=== PATIENT | male | born 1955 | race Hispanic/Latino ===

== ENCOUNTER 2018-06-14 21:55 | Inpatient (IN) | payer OTHER ==
[2018-06-14] MEDS ORDERED: Fluorescein Opthalmic Strip ONE (22:53)
[2018-06-15] MEDS ORDERED: Ondansetron ODT 4 MG TAB SL PRN (02:43)
[2018-06-15] MEDS ORDERED: Ondansetron PF 4 MG/2 ML Vial IVP PRN ×3 (02:43→04:25)
[2018-06-15] MEDS ORDERED: Morphine 4 MG/ML VIAL IV PRN (02:43)
[2018-06-15 03:02] VITALS: BMI 35.4
[2018-06-15] MEDS ORDERED: Acetaminophen 325 MG TAB PO PRN ×2 (04:25→21:02)
[2018-06-15] MEDS ORDERED: Ondansetron ODT 4 MG TAB PO PRN ×2 (04:25)
[2018-06-15] MEDS ORDERED: HumaLOG 300 UNITS/3 ML VIAL SC PRN (04:25)
[2018-06-15] MEDS ORDERED: Dextrose 50% Abboject 50 ML SYRINGE SLOW IVP PRN (04:25)
[2018-06-15] MEDS ORDERED: Dextrose 5% in Water 1,000 ML IV PRN (04:25)
[2018-06-15] MEDS ORDERED: hydrALAZINE 20 MG/ML VIAL SLOW IVP PRN (04:25)
--- NOTE | 2018-06-15 04:55 | HP ---
CHIEF COMPLAINT: Swelling in the left side of the face. HISTORY OF PRESENT ILLNESS: Mr. Gonzalez is a pleasant 62-year-old gentleman, who has a history of diabetes mellitus type 2 as well as cirrhosis. He was in his usual state of health until a couple of days ago when he says he noticed a small pimple like area on the side of his nose. He says then the swelling got progressively worse to the point where it encompassed his whole left side of his face and his eyes were swollen and shut. He tried using some creams and lotions that his family brought in without any relief. When asked if he had any significant pain, he said he had a little bit of soreness on Thursday and Thursday, but then it got better. There has been no change in his vision. No fevers or chills. However, due to the extensive nature of the swelling and redness, he was taken to the hospital at [facility] where he was evaluated, started on IV antibiotics, and then transferred to our facility for further treatment. REVIEW OF SYSTEMS: All systems were reviewed and are negative except for that mentioned in the history of present illness. PAST MEDICAL HISTORY: Significant for diabetes mellitus type 2, cirrhosis, hypertension, gastroesophageal reflux disease, pancytopenia, and hypothyroidism. PAST SURGICAL HISTORY: He has had disk surgery. ALLERGIES: NO KNOWN DRUG ALLERGIES. SOCIAL HISTORY: He is only recently . He denies any smoking. No alcohol use. He has 4 children. FAMILY HISTORY: No history of any heritable diseases. MEDICATIONS: Medications are taken from the records sent with him from the [facility], from the [facility] include, 1. Aldactone 25 mg twice daily. 2. Xifaxan 3 tablets twice a day. 3. Propranolol 20 mg twice daily. 4. Omeprazole 20 mg daily. 5. Insulin sliding scale. 6. Levothyroxine 0.1 mg daily. 7. Furosemide 20 mg daily. 8. Iron sulfate 325 mg twice daily. 9. Debrox Otic twice a day. 10. Tylenol 325 p.r.n. PHYSICAL EXAMINATION: GENERAL: He is alert and oriented. He appears to be in no acute distress. He is well developed and well nourished. VITAL SIGNS: Blood pressure was 107/69, heart rate 84, respiratory rate of 16, temperature is 97.6, and O2 saturation is 96% on room air. HEENT: His pupils are equal and reactive. Throat, he has slightly poor dentition, but there is no significant erythema. NECK: He has some swelling on the left side in the submandibular region, but no adenopathy. LUNGS: Clear to auscultation bilaterally. No wheezing or rales. CARDIOVASCULAR: He has normal S1 and S2. I did not appreciate an S3 or S4. No murmurs, clicks, or rubs. ABDOMEN: Obese. It is soft. It is nontender and nondistended. Positive for bowel sounds. No rebound or guarding. No organomegaly. EXTREMITIES: On his lower extremities, there is no edema. He does have some chronic venous stasis changes. No calf pain. NEUROLOGIC: His cranial nerves II through XII are intact. SKIN AND INTEGUMENT: On the left side of his face, it is significantly swollen. His left eye is essentially swollen and shut. He has some horta crusting along with some dark red, almost black crusting areas on the face around the nose and nasal labia. There is no discrete vesicles seen and there is significant swelling on the left side of the face as well as some underlying erythema. LABORATORY DATA: Lab results are taken from the [facility], and the white blood cell count was 4.4, hemoglobin 12.5, hematocrit is 35.2, and platelet count was 49. Sodium is 127, potassium 3.9, chloride is 93, CO2 is 24, BUN 27, creatinine 1.4. Lactic acid initially was 2.1. He had a CT scan of the face, which was negative for any deep abscess nor did mention any periorbital or orbital cellulitis, but did show some superficial facial swelling. ASSESSMENT: This is a pleasant 62-year-old gentleman, who presents with left facial swelling, likely this represents cellulitis. He says that the area started he believes around the nasal fold, and the CT scan did show some mandibular swelling. Therefore, the source could either be superficial near the nose or possibly due to bad dentition or poor dentition. There were no vesicular lesions even though the area is unilateral. Therefore, I doubt this is a herpes zoster infection. It is reported that he has already been evaluated by Ophthalmology in the ER and ocular involvement has been ruled out. Therefore, 1. Facial cellulitis. We will cover for the usual pathogen such as staph and strep and then given the proximity to the mandible, agree with continuing clindamycin for possible oral pathogens. We will need to follow his progress clinically and adjust antibiotics as needed. 2. Cirrhosis. This appears to be clinically compensated at this time. We will continue his usual medications for this. 3. Hypertension. Again reconcile and restart his home medications plus p.r.n. medications as needed. 4. For diabetes mellitus, again reconcile and restart home medications as well as a sliding scale. Job ID: [id number]
[2018-06-15] MEDS: Levothyroxine Sodium 100 MCG TAB PO SCH (05:12)
[2018-06-15] MEDS: Clindamycin/D5W 600 MG in Premix Bag 1 BAG IVPB SCH ×2 (05:12→13:57)
[2018-06-15 08:34] LABS: INR-International Normal Ratio 1.5; Prothrombin Time 18.3 SEC (12.0-14.7)
[2018-06-15 08:39] LABS: #Lymphocytes 0.6 thou/uL (1.20-3.40); #Monocytes 0.1 thou/uL (0.11-0.59); #Neutrophils 2.1 thou/uL (1.40-6.50); %Basophils 0.1 % (0.0-1.0); %Eosinophils 0.1 % (0.0-10.0); %Lymphocytes 19.3 % (21.0-51.0); %Monocytes 4.7 % (0.0-10.0); %Neutrophils 75.8 % (42.0-75.0); Hemoglobin 10.1 g/dL (14.0-18.0); Mean Corpuscular HGB CONC 34.3 g/dL (32.0-36.0); Mean Corpuscular Hemoglobin 33.3 pg (27.0-31.0); Mean Corpuscular Volume 97.2 fL (78.0-98.0); Mean Platelet Volume 8.3 fL (7.4-10.4); Platelet Count 42 thou/uL (130-400); RBC Distribution Width 13.6 % (11.5-14.5); Red Blood Cell (RBC) Count 3.03 mill/uL (4.70-6.10); White Blood Cell (WBC) Count 2.8 thou/uL (4.8-10.8)
[2018-06-15 08:42] LABS: Anion Gap 11 mmol/L (10-20); BUN (Urea Nitrogen) 29 mg/dL (8.4-25.7); Calc. Creatinine Clearance 85 mL/min (70-130); Calcium 7.7 mg/dL (7.8-10.44); Carbon Dioxide 20 mmol/L (22-29); Chloride 102 mmol/L (98-107); Estimated GFR-MDRD 63; Glucose 305 mg/dL (70-105); Potassium 3.7 mmol/L (3.5-5.1); Sodium 129 mmol/L (136-145)
[2018-06-15] MEDS ORDERED: RIFAXIMIN 200 MG PO SCH (09:00)
[2018-06-15] MEDS ORDERED: Vancomycin HCl 1 GM in Premix Bag 1 BAG IVPB SCH (09:00)
[2018-06-15] MEDS: Ferrous Sulfate 325 MG TAB PO SCH ×2 (09:13→16:38)
[2018-06-15] MEDS: Spironolactone 25 MG TAB PO SCH ×2 (09:13→20:44)
[2018-06-15] MEDS: Furosemide 20 MG TAB PO SCH (09:13)
[2018-06-15] MEDS: Propranolol HCl 20 MG TAB PO SCH ×2 (09:13→20:46)
[2018-06-15] MEDS ORDERED: NPH, Human Insulin Isophane 300 UNIT/3 ML VIAL SC SCH ×2 (12:30→21:00)
[2018-06-15] MEDS: HumaLOG 300 UNITS/3 ML VIAL SC PRN ×3 (12:46→20:47)
[2018-06-15] MEDS ORDERED: cefTRIAXone\\ROCEPHIN 1 GM in Sodium Chloride 0.9% 100 ML IVPB SCH (13:00)
[2018-06-15 16:44] LABS: Reference Lab Name LABCORP
[2018-06-15 16:45] LABS: Ref Lab Test Ordered VZV DNA PCR
[2018-06-15] MEDS: Artificial Tear Sol 15 ML BOT L EYE SCH ×2 (16:45→20:48)
--- NOTE | 2018-06-15 19:17 | CON ---
DATE OF CONSULTATION: 06/15/2018 REASON FOR CONSULTATION: Left facial inflammatory changes. HISTORY OF PRESENT ILLNESS: A 62-year-old patient, who has history of type 2 diabetes, cirrhosis probably steatohepatitis with pancytopenia, and GERD, who is a resident at [facility] and developed a left side skin eruption over the past few days, which started as a small pimple to the left side of his nose. He has been started on broad-spectrum antimicrobial coverage. Apparently, he was given some antimicrobials and antivirals in the [facility] clinic. The vision is intact. He has periorbital pain from swelling. Denies any sore throat, odynophagia, dysphagia, or maybe a little bit of sore throat. No neck pain. No back pain. No cough or sputum production. No abdominal pain or diarrhea. No genitourinary symptoms. No neurological symptoms. PAST MEDICAL HISTORY: Type 2 diabetes, cirrhosis probably steatohepatitis, hypertension, GERD, pancytopenia, and hypothyroidism. PAST SURGICAL HISTORY: Disk surgery in the back. ALLERGIES: NONE. SOCIAL HISTORY: He is currently at [facility]. Never smoker. No alcoholic beverage use. Four kids. FAMILY HISTORY: Noncontributory. CURRENT MEDICATIONS: 1. Acyclovir. 2. Ferrous sulfate. 3. Furosemide. 4. Hydralazine. 5. Lactulose. 6. Ondansetron. PHYSICAL EXAMINATION: VITAL SIGNS: Blood pressure is normal. Temperature normal. SKIN: Shows the pustular eruption on the left side of the face in the distribution of the second trigeminal nerve. He does have pustules in the hard palate on the left side as well. HEENT: The earlobe and external ear are not involved. The sclerae appears to be intact and the cornea does not appear to be involved. NECK: Supple. No jugular vein distention. LUNGS: Symmetric clear breath sounds. HEART: S1 and S2. Regular rate. No S3 or S4. ABDOMEN: Soft, not distended or tender. No ascites. No bladder distention. NEUROLOGIC: No neurological abnormalities. LABORATORY DATA: White cell count 2.8, hemoglobin 10.1, and platelets 42,000 with 75% neutrophils. INR 1.5. Sodium 129, creatinine 1.18, glucose 305, and calcium 7.7. Chest x-ray was not done, actually, this is from September and did not show any significant findings. ASSESSMENT AND PLAN: Type 2 diabetes with herpes zoster in the second trigeminal nerve distribution. No evidence of corneal involvement at this time. We will switch him to acyclovir IV and monitor clinical progress. Continue monitoring corneal structure. Job ID: [id number]
[2018-06-15] MEDS: Rifaximin 550 MG TAB PO SCH (20:44)
[2018-06-15] MEDS: NPH, Human Insulin Isophane 300 UNIT/3 ML VIAL SC SCH (20:46)
[2018-06-15] MEDS: Acyclovir Sodium 570 MG in Sodium Chloride 0.9% 100 ML IVPB SCH (20:48)
[2018-06-15] MEDS ORDERED: traMADol HCl 50 MG TAB PO PRN (21:02)
--- NOTE | 2018-06-15 21:20 | PDOC.PN ---
- Subjective Encounter Start Date: 06/15/18 Encounter Start Time: 10:45 Patient seen and examined for left facial cellulitis. No fever/chills. No vision problems. No new complaints. No overnight events - Objective Resuscitation Status - Order Detail: 06/15/18 04:17 Resuscitation Status Routine Resuscitation Status: FULL: Full Resuscitation MAR Reviewed: Yes Vital Signs & Weight: Vital Signs (12 hours) Temp Pulse Resp BP Pulse Ox 06/15/18 19:54 97.8 F 87 16 98/55 L 93 L 06/15/18 16:45 97.8 F 90 18 119/61 98 06/15/18 11:00 97.9 F 77 18 99/60 96 Weight Admit Weight 200 lb 1.6 oz Weight 200 lb 1.6 oz I&O: 06/14/18 06/15/18 06/16/18 06:59 06:59 06:59 Intake Total 720 Balance 720 Result Diagrams: 06/15/18 07:47 06/15/18 07:47 Additional Labs: Accuchecks 06/15/18 06/15/18 06/15/18 19:59 16:43 11:37 POC Glucose 430 H 427 H 429 H 06/15/18 06/15/18 05:13 03:16 POC Glucose 329 H 308 H Phys Exam - Physical Examination Constitutional: NAD Respiratory: no wheezing, no rhonchi Cardiovascular: RRR, no rub Gastrointestinal: soft, non-tender, positive bowel sounds Musculoskeletal: no edema Dx/Plan - Plan DVT proph w/SCDs 1. Left facial cellulitis/Herpes Zoster 2. Cirrhosis 3. Obesity BMI 35 4. DM2 5. HTN 6. Hypothyroidism 7. Pancytopenia/Other issues per previous notes PLAN: Cont IV Atbx Consult ID Resume selected home meds including Rifaximin AM labs Add NPH Change sliding scale to aggressive Ophthal consult Review of Systems - Review of Systems Respiratory: negative: Cough, Dry, Shortness of Breath, Hemoptysis, SOB with Excertion, Pleuritic Pain, Sputum, Wheezing Cardiovascular: negative: chest pain, palpitations, orthopnea, paroxysmal nocturnal dyspnea, edema, light headedness, other Gastrointestinal: negative: Nausea, Vomiting, Abdominal Pain, Diarrhea, Constipation, Melena, Hematochezia, Other - Medications/Allergies Allergies/Adverse Reactions: Allergies Allergy/AdvReac Type Severity Reaction Status Date / Time No Known Allergies Allergy Verified 08/27/16 10:10 Medications: Current Medications Acetaminophen (Tylenol) 325 mg PO Q6H PRN PRN Reason: Headache/Fever/MILDPain1-3 Artificial Tears (Tears Renewed 15ml Bottle) 0 drop L EYE TID [facility] Last Admin: 06/15/18 20:48 Dose: 2 drop Dextrose/Water (Dextrose 50%) 25 gm SLOW IVP PRN PRN PRN Reason: Hypoglycemia Ferrous Sulfate (Feosol) 325 mg PO BID-[facility] Last Admin: 06/15/18 16:38 Dose: 325 mg Furosemide (Lasix) 20 mg PO DAILY [facility] Last Admin: 06/15/18 09:13 Dose: 20 mg Glucagon (Glucagon) 1 mg IM PRN PRN PRN Reason: Hypoglycemia Hydralazine HCl (Apresoline) 10 mg SLOW IVP Q4H PRN PRN Reason: SBP > 180 and HR < 70 Dextrose/Water (D5w) 1,000 mls @ 0 mls/hr IV .Q0M PRN PRN Reason: Hypoglycemia Acyclovir Sodium 570 mg/ (Sodium Chloride) 111.4 mls @ 111.4 mls/hr IVPB Q8HR [facility] Last Admin: 06/15/18 20:48 Dose: 111.4 mls Insulin Human Lispro (Humalog) 0 units SC .BEDTIME SLIDING SC PRN PRN Reason: Bedtime Correctional Scale Last Admin: 06/15/18 20:47 Dose: 5 unit/kg Insulin Human Lispro (Humalog) 0 units SC .AGGRESSIVE SLIDING PRN PRN Reason: Aggressive Correctional Scale Last Admin: 06/15/18 16:42 Dose: 13 unit Insulin Human NPH (Humulin N) 20 unit SC BID [facility] Last Admin: 06/15/18 20:46 Dose: 20 unit Lactulose (Lactulose) 10 gm PO BID [facility] Last Admin: 06/15/18 20:44 Dose: 10 gm Levothyroxine Sodium (Synthroid) 100 mcg PO 0600 [facility] Last Admin: 06/15/18 05:12 Dose: 100 mcg Ondansetron HCl (Zofran Odt) 4 mg PO Q6H PRN PRN Reason: Nausea/Vomiting Ondansetron HCl (Zofran) 4 mg IVP Q6H PRN PRN Reason: Nausea/Vomiting Propranolol HCl (Inderal) 20 mg PO BID [facility] Last Admin: 06/15/18 20:46 Dose: 20 mg Rifaximin (Xifaxan) 550 mg PO BID [facility] Last Admin: 06/15/18 20:44 Dose: 550 mg Saccharomyces Boulardii (Florastor) 250 mg PO DAILY [facility] Sodium Chloride (Flush - Normal Saline) 10 ml IVF Q12HR [facility] Last Admin: 06/15/18 20:46 Dose: 10 ml Sodium Chloride (Flush - Normal Saline) 10 ml IVF PRN PRN PRN Reason: Saline Flush Spironolactone (Aldactone) 25 mg PO BID [facility] Last Admin: 06/15/18 20:44 Dose: 25 mg Tramadol HCl (Ultram) 50 mg PO Q8H PRN PRN Reason: Moderate Pain (4-6)
[2018-06-16] MEDS: HumaLOG 300 UNITS/3 ML VIAL SC PRN ×5 (03:50→22:05)
[2018-06-16 05:20] LABS: ALT (SGPT) 33 U/L (8-55); AST (SGOT) 36 U/L (5-34); Albumin 2.8 g/dL (3.5-5.0); Alkaline Phosphatase 77 U/L (40-150); Anion Gap 12 mmol/L (10-20); BUN (Urea Nitrogen) 35 mg/dL (8.4-25.7); Bilirubin, Total 1.6 mg/dL (0.2-1.2); Calc. Creatinine Clearance 81 mL/min (70-130); Calcium 8.4 mg/dL (7.8-10.44); Carbon Dioxide 22 mmol/L (22-29); Chloride 101 mmol/L (98-107); Estimated GFR-MDRD 59; Globulin 2.9 g/dL (2.4-3.5); Glucose 303 mg/dL (70-105); Magnesium 1.9 mg/dL (1.6-2.6); Potassium 4.1 mmol/L (3.5-5.1); Protein, Total 5.7 g/dL (6.0-8.3); Sodium 131 mmol/L (136-145)
[2018-06-16] MEDS: Levothyroxine Sodium 100 MCG TAB PO SCH (05:23)
[2018-06-16] MEDS: Acyclovir Sodium 570 MG in Sodium Chloride 0.9% 100 ML IVPB SCH ×3 (05:23→22:07)
[2018-06-16 05:25] LABS: #Monocytes 0.5 thou/uL (0.11-0.59); #Neutrophils 4.7 thou/uL (1.40-6.50); %Basophils 0.3 % (0.0-1.0); %Eosinophils 0.4 % (0.0-10.0); %Lymphocytes 15.9 % (21.0-51.0); %Monocytes 7.3 % (0.0-10.0); %Neutrophils 76.2 % (42.0-75.0); Hemoglobin 10.9 g/dL (14.0-18.0); Mean Corpuscular HGB CONC 34.5 g/dL (32.0-36.0); Mean Corpuscular Hemoglobin 33.6 pg (27.0-31.0); Mean Corpuscular Volume 97.2 fL (78.0-98.0); Mean Platelet Volume 8.7 fL (7.4-10.4); Platelet Count 52 thou/uL (130-400); RBC Distribution Width 13.7 % (11.5-14.5); Red Blood Cell (RBC) Count 3.25 mill/uL (4.70-6.10); White Blood Cell (WBC) Count 6.1 thou/uL (4.8-10.8)
[2018-06-16] MEDS ORDERED: Saccharomyces boulardii 250 MG CAP PO SCH (09:00)
[2018-06-16] MEDS: Propranolol HCl 20 MG TAB PO SCH ×2 (09:22→21:59)
[2018-06-16] MEDS: Spironolactone 25 MG TAB PO SCH ×2 (09:23→21:58)
[2018-06-16] MEDS: Rifaximin 550 MG TAB PO SCH ×2 (09:23→21:58)
[2018-06-16] MEDS: Ferrous Sulfate 325 MG TAB PO SCH ×2 (09:23→18:18)
[2018-06-16] MEDS: Furosemide 20 MG TAB PO SCH (09:23)
[2018-06-16] MEDS: Artificial Tear Sol 15 ML BOT L EYE SCH ×3 (09:24→22:00)
[2018-06-16] MEDS: NPH, Human Insulin Isophane 300 UNIT/3 ML VIAL SC SCH ×2 (09:24→22:00)
[2018-06-16] MEDS ORDERED: NPH, Human Insulin Isophane 300 UNIT/3 ML VIAL SC SCH ×2 (12:07→12:15)
[2018-06-16] MEDS ORDERED: Eucerin (Mineral Oil/Petrolatum,White) 30 gm Jar TOP PRN (12:43)
--- NOTE | 2018-06-16 17:13 | PRG ---
DATE OF SERVICE: 06/16/2018 SUBJECTIVE: Mr. Gonzalez is about the same. Denies any visual problems. He was seen by Dr. Ontiveros, Ophthalmology. No respiratory symptoms or abdominal pain. No diarrhea. OBJECTIVE: VITAL SIGNS: Normal. GENERAL: The left side of the face still with areas of herpes zoster. Some of them are dried up and necrotic. Some of them are still active. LUNGS: Clear. HEART: S1 and S2, regular rate. ABDOMEN: Soft, not distended or tender. EXTREMITIES: Moving all extremities equally. LABORATORY DATA: White cell count 6.1, hemoglobin 10.9, platelets 52,000, sodium 131, creatinine 1.24 with bilirubin 1.6, AST 36, albumin 2.8. ASSESSMENT AND DISCUSSION: Type 2 diabetes and herpes zoster in the second trigeminal distribution. No evidence of corneal involvement at this time. The patient to continue on IV acyclovir one that was drying up over the lesions and transition to oral acyclovir for discharge planning. Job ID: [id number]
--- NOTE | 2018-06-16 21:32 | PDOC.PN ---
- Subjective Encounter Start Date: 06/16/18 Encounter Start Time: 12:00 Patient seen and examined for Left facial lesions. No new complaints. No overnight events - Objective Resuscitation Status - Order Detail: 06/15/18 04:17 Resuscitation Status Routine Resuscitation Status: FULL: Full Resuscitation MAR Reviewed: Yes Vital Signs & Weight: Vital Signs (12 hours) Temp Pulse Resp BP Pulse Ox 06/16/18 12:00 97.9 F 76 18 104/64 97 Weight Admit Weight 200 lb 1.6 oz Weight 200 lb 1.6 oz I&O: 06/15/18 06/16/18 06/17/18 06:59 06:59 06:59 Intake Total 720 720 Balance 720 720 Result Diagrams: 06/16/18 04:17 06/16/18 04:17 Additional Labs: Accuchecks 06/16/18 06/16/18 06/16/18 19:29 16:55 11:39 POC Glucose 411 H 336 H 368 H 06/16/18 06/16/18 06/16/18 11:30 04:42 01:52 POC Glucose 403 H 229 H 319 H Phys Exam - Physical Examination Constitutional: NAD Respiratory: no wheezing, no rhonchi Cardiovascular: RRR, no rub Gastrointestinal: soft, non-tender, positive bowel sounds Musculoskeletal: no edema Neurological: moves all 4 limbs Dx/Plan - Plan DVT proph w/SCDs 1. Left facial Herpes Zoster 2. Cirrhosis 3. Obesity BMI 35 4. DM2 5. HTN 6. Hypothyroidism 7. Pancytopenia/Other issues per previous notes PLAN: Cont IV Acyclovir No corneal involvement per Ophthal Cont current meds as below Resume home PPI AM labs Increase NPH to 25 units BID Cont sliding scale Review of Systems - Review of Systems Respiratory: negative: Cough, Dry, Shortness of Breath, Hemoptysis, SOB with Excertion, Pleuritic Pain, Sputum, Wheezing Cardiovascular: negative: chest pain, palpitations, orthopnea, paroxysmal nocturnal dyspnea, edema, light headedness, other Gastrointestinal: negative: Nausea, Vomiting, Abdominal Pain, Diarrhea, Constipation, Melena, Hematochezia, Other - Medications/Allergies Allergies/Adverse Reactions: Allergies Allergy/AdvReac Type Severity Reaction Status Date / Time No Known Allergies Allergy Verified 08/27/16 10:10 Medications: Current Medications Acetaminophen (Tylenol) 325 mg PO Q6H PRN PRN Reason: Headache/Fever/MILDPain1-3 Artificial Tears (Tears Renewed 15ml Bottle) 0 drop L EYE TID [facility] Last Admin: 06/16/18 18:19 Dose: 1 drop Dextrose/Water (Dextrose 50%) 25 gm SLOW IVP PRN PRN PRN Reason: Hypoglycemia Ferrous Sulfate (Feosol) 325 mg PO BID-[facility] Last Admin: 06/16/18 18:18 Dose: 325 mg Furosemide (Lasix) 20 mg PO DAILY [facility] Last Admin: 06/16/18 09:23 Dose: 20 mg Glucagon (Glucagon) 1 mg IM PRN PRN PRN Reason: Hypoglycemia Hydralazine HCl (Apresoline) 10 mg SLOW IVP Q4H PRN PRN Reason: SBP > 180 and HR < 70 Dextrose/Water (D5w) 1,000 mls @ 0 mls/hr IV .Q0M PRN PRN Reason: Hypoglycemia Acyclovir Sodium 570 mg/ (Sodium Chloride) 111.4 mls @ 111.4 mls/hr IVPB Q8HR [facility] Last Admin: 06/16/18 15:30 Dose: 111.4 mls Insulin Human Lispro (Humalog) 0 units SC .BEDTIME SLIDING SC PRN PRN Reason: Bedtime Correctional Scale Last Admin: 06/16/18 03:50 Dose: 4 unit/kg Insulin Human Lispro (Humalog) 0 units SC .AGGRESSIVE SLIDING PRN PRN Reason: Aggressive Correctional Scale Last Admin: 06/16/18 18:18 Dose: 11 unit Insulin Human NPH (Humulin N) 25 unit SC BID [facility] Lactulose (Lactulose) 10 gm PO BID [facility] Last Admin: 06/16/18 09:23 Dose: 10 gm Levothyroxine Sodium (Synthroid) 100 mcg PO 0600 [facility] Last Admin: 06/16/18 05:23 Dose: 100 mcg Mineral Oil/White Petrolatum (Eucerin Cream) 0 gm TOP BIDPRN PRN PRN Reason: Dry Skin Non-Formulary Medication (Omeprazole [Omeprazole]) 20 mg PO DAILY [facility] Ondansetron HCl (Zofran Odt) 4 mg PO Q6H PRN PRN Reason: Nausea/Vomiting Ondansetron HCl (Zofran) 4 mg IVP Q6H PRN PRN Reason: Nausea/Vomiting Propranolol HCl (Inderal) 20 mg PO BID [facility] Last Admin: 06/16/18 09:22 Dose: 20 mg Rifaximin (Xifaxan) 550 mg PO BID [facility] Last Admin: 06/16/18 09:23 Dose: 550 mg Saccharomyces Boulardii (Florastor) 250 mg PO DAILY [facility] Last Admin: 06/16/18 09:22 Dose: 250 mg Sodium Chloride (Flush - Normal Saline) 10 ml IVF Q12HR [facility] Last Admin: 06/16/18 09:24 Dose: 10 ml Sodium Chloride (Flush - Normal Saline) 10 ml IVF PRN PRN PRN Reason: Saline Flush Spironolactone (Aldactone) 25 mg PO BID [facility] Last Admin: 06/16/18 09:23 Dose: 25 mg Tramadol HCl (Ultram) 50 mg PO Q8H PRN PRN Reason: Moderate Pain (4-6)
[2018-06-17] MEDS: Levothyroxine Sodium 100 MCG TAB PO SCH (05:56)
[2018-06-17] MEDS: Acyclovir Sodium 570 MG in Sodium Chloride 0.9% 100 ML IVPB SCH ×3 (05:57→21:23)
[2018-06-17] MEDS: HumaLOG 300 UNITS/3 ML VIAL SC PRN ×2 (05:59→18:57)
[2018-06-17 06:42] LABS: #Lymphocytes 0.9 thou/uL (1.20-3.40); #Monocytes 0.5 thou/uL (0.11-0.59); #Neutrophils 4.4 thou/uL (1.40-6.50); %Basophils 0.3 % (0.0-1.0); %Eosinophils 0.5 % (0.0-10.0); %Lymphocytes 15.3 % (21.0-51.0); %Monocytes 7.7 % (0.0-10.0); %Neutrophils 76.2 % (42.0-75.0); Hemoglobin 11.3 g/dL (14.0-18.0); Mean Corpuscular HGB CONC 34.9 g/dL (32.0-36.0); Mean Corpuscular Hemoglobin 33.4 pg (27.0-31.0); Mean Corpuscular Volume 95.7 fL (78.0-98.0); Platelet Count 63 thou/uL (130-400); RBC Distribution Width 13.6 % (11.5-14.5); Red Blood Cell (RBC) Count 3.39 mill/uL (4.70-6.10); White Blood Cell (WBC) Count 5.8 thou/uL (4.8-10.8)
[2018-06-17 06:57] LABS: ALT (SGPT) 33 U/L (8-55); AST (SGOT) 35 U/L (5-34); Albumin 2.8 g/dL (3.5-5.0); Alkaline Phosphatase 84 U/L (40-150); Anion Gap 10 mmol/L (10-20); BUN (Urea Nitrogen) 22 mg/dL (8.4-25.7); Bilirubin, Total 1.5 mg/dL (0.2-1.2); Calc. Creatinine Clearance 90 mL/min (70-130); Calcium 8.6 mg/dL (7.8-10.44); Carbon Dioxide 25 mmol/L (22-29); Chloride 103 mmol/L (98-107); Estimated GFR-MDRD 67; Globulin 3.1 g/dL (2.4-3.5); Glucose 200 mg/dL (70-105); Potassium 4.1 mmol/L (3.5-5.1); Protein, Total 5.9 g/dL (6.0-8.3); Sodium 134 mmol/L (136-145)
[2018-06-17] MEDS: Spironolactone 25 MG TAB PO SCH ×2 (09:25→21:21)
[2018-06-17] MEDS: Rifaximin 550 MG TAB PO SCH ×2 (09:25→21:21)
[2018-06-17] MEDS: Furosemide 20 MG TAB PO SCH (09:26)
[2018-06-17] MEDS: Propranolol HCl 20 MG TAB PO SCH ×2 (09:26→21:27)
[2018-06-17] MEDS: NPH, Human Insulin Isophane 300 UNIT/3 ML VIAL SC SCH ×2 (09:27→21:29)
[2018-06-17] MEDS: Artificial Tear Sol 15 ML BOT L EYE SCH ×3 (09:27→21:22)
[2018-06-17] MEDS: Ferrous Sulfate 325 MG TAB PO SCH ×2 (09:27→18:14)
--- NOTE | 2018-06-17 21:56 | PDOC.PN ---
- Subjective Encounter Start Date: 06/17/18 Encounter Start Time: 10:45 Patient seen and examined for Zoster. No fever/chills or visual deficits. No new complaints. No overnight events - Objective Resuscitation Status - Order Detail: 06/15/18 04:17 Resuscitation Status Routine Resuscitation Status: FULL: Full Resuscitation MAR Reviewed: Yes Vital Signs & Weight: Vital Signs (12 hours) Temp Pulse Resp BP Pulse Ox 06/17/18 19:47 98.0 F 69 18 107/67 97 06/17/18 16:00 97.6 F 68 18 109/62 98 Weight Admit Weight 200 lb 1.6 oz Weight 200 lb 1.6 oz I&O: 06/16/18 06/17/18 06/18/18 06:59 06:59 06:59 Intake Total 720 1400 600 Balance 720 1400 600 Result Diagrams: 06/17/18 06:18 06/17/18 06:18 Additional Labs: Accuchecks 06/17/18 06/17/18 06/17/18 19:46 17:10 11:42 POC Glucose 281 H 271 H 261 H 06/17/18 05:57 POC Glucose 195 H Phys Exam - Physical Examination Constitutional: NAD HEENT: moist MMs Left facial lesion - slightly better Respiratory: no wheezing, no rhonchi Cardiovascular: RRR, no rub Gastrointestinal: soft, non-tender, positive bowel sounds Musculoskeletal: no edema Neurological: moves all 4 limbs Dx/Plan - Plan DVT proph w/SCDs 1. 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 Cirrhosis 3. Obesity BMI 35 4. DM2 5. HTN 6. Hypothyroidism 7. Pancytopenia/Other issues per previous notes PLAN: Cont IV Acyclovir AM labs Increase NPH to 30 units BID Cont current sliding scale DC in 24-48 hr if stable Review of Systems - Review of Systems Respiratory: negative: Cough, Dry, Shortness of Breath, Hemoptysis, SOB with Excertion, Pleuritic Pain, Sputum, Wheezing Cardiovascular: negative: chest pain, palpitations, orthopnea, paroxysmal nocturnal dyspnea, edema, light headedness, other - Medications/Allergies Allergies/Adverse Reactions: Allergies Allergy/AdvReac Type Severity Reaction Status Date / Time No Known Allergies Allergy Verified 08/27/16 10:10 Medications: Current Medications Acetaminophen (Tylenol) 325 mg PO Q6H PRN PRN Reason: Headache/Fever/MILDPain1-3 Artificial Tears (Tears Renewed 15ml Bottle) 0 drop L EYE TID ON LICENSE OF [facility] Last Admin: 06/17/18 21:22 Dose: 1 drop Dextrose/Water (Dextrose 50%) 25 gm SLOW IVP PRN PRN PRN Reason: Hypoglycemia Ferrous Sulfate (Feosol) 325 mg PO BID-[facility] Last Admin: 06/17/18 18:14 Dose: 325 mg Furosemide (Lasix) 20 mg PO DAILY [facility] Last Admin: 06/17/18 09:26 Dose: 20 mg Glucagon (Glucagon) 1 mg IM PRN PRN PRN Reason: Hypoglycemia Hydralazine HCl (Apresoline) 10 mg SLOW IVP Q4H PRN PRN Reason: SBP > 180 and HR < 70 Dextrose/Water (D5w) 1,000 mls @ 0 mls/hr IV .Q0M PRN PRN Reason: Hypoglycemia Acyclovir Sodium 570 mg/ (Sodium Chloride) 111.4 mls @ 111.4 mls/hr IVPB Q8HR ON [facility] OF [facility] Last Admin: 06/17/18 21:23 Dose: 111.4 mls Insulin Human Lispro (Humalog) 0 units SC .BEDTIME SLIDING SC PRN PRN Reason: Bedtime Correctional Scale Last Admin: 06/16/18 22:05 Dose: 5 unit/kg Insulin Human Lispro (Humalog) 0 units SC .AGGRESSIVE SLIDING PRN PRN Reason: Aggressive Correctional Scale Last Admin: 06/17/18 18:57 Dose: 9 unit Insulin Human NPH (Humulin N) 30 unit SC BID [facility] Lactulose (Lactulose) 10 gm PO TID [facility] Last Admin: 06/17/18 21:22 Dose: 10 gm Levothyroxine Sodium (Synthroid) 100 mcg PO 0600 [facility] Last Admin: 06/17/18 05:56 Dose: 100 mcg Mineral Oil/White Petrolatum (Eucerin Cream) 0 gm TOP BIDPRN PRN PRN Reason: Dry Skin Ondansetron HCl (Zofran Odt) 4 mg PO Q6H PRN PRN Reason: Nausea/Vomiting Ondansetron HCl (Zofran) 4 mg IVP Q6H PRN PRN Reason: Nausea/Vomiting Pantoprazole Sodium (Protonix) 40 mg PO DAILY [facility] Last Admin: 06/17/18 09:26 Dose: 40 mg Propranolol HCl (Inderal) 20 mg PO BID [facility] Last Admin: 06/17/18 21:27 Dose: 20 mg Rifaximin (Xifaxan) 550 mg PO BID [facility] Last Admin: 06/17/18 21:21 Dose: 550 mg Sodium Chloride (Flush - Normal Saline) 10 ml IVF Q12HR [facility] Last Admin: 06/17/18 21:23 Dose: 10 ml Sodium Chloride (Flush - Normal Saline) 10 ml IVF PRN PRN PRN Reason: Saline Flush Spironolactone (Aldactone) 25 mg PO BID [facility] Last Admin: 06/17/18 21:21 Dose: 25 mg Tramadol HCl (Ultram) 50 mg PO Q8H PRN PRN Reason: Moderate Pain (4-6)
[2018-06-17] MEDS ORDERED: NPH, Human Insulin Isophane 300 UNIT/3 ML VIAL SC SCH (22:00)
[2018-06-18] MEDS: Acyclovir Sodium 570 MG in Sodium Chloride 0.9% 100 ML IVPB SCH ×3 (06:06→21:48)
[2018-06-18] MEDS: Levothyroxine Sodium 100 MCG TAB PO SCH (06:06)
[2018-06-18] MEDS: HumaLOG 300 UNITS/3 ML VIAL SC PRN ×3 (06:07→22:05)
[2018-06-18 06:33] LABS: #Eosinphils 0.2 thou/uL (0.0-0.7); #Monocytes 0.4 thou/uL (0.11-0.59); #Neutrophils 4.6 thou/uL (1.40-6.50); %Basophils 0.2 % (0.0-1.0); %Eosinophils 2.1 % (0.0-10.0); %Lymphocytes 27.2 % (21.0-51.0); %Neutrophils 64.5 % (42.0-75.0); Hemoglobin 13.1 g/dL (14.0-18.0); Mean Corpuscular HGB CONC 34.9 g/dL (32.0-36.0); Mean Corpuscular Hemoglobin 33.2 pg (27.0-31.0); Mean Corpuscular Volume 95.2 fL (78.0-98.0); Mean Platelet Volume 7.7 fL (7.4-10.4); Platelet Count 69 thou/uL (130-400); RBC Distribution Width 13.8 % (11.5-14.5); Red Blood Cell (RBC) Count 3.96 mill/uL (4.70-6.10); White Blood Cell (WBC) Count 7.2 thou/uL (4.8-10.8)
[2018-06-18 07:00] LABS: Anion Gap 12 mmol/L (10-20); BUN (Urea Nitrogen) 18 mg/dL (8.4-25.7); Calc. Creatinine Clearance 93 mL/min (70-130); Calcium 8.7 mg/dL (7.8-10.44); Carbon Dioxide 22 mmol/L (22-29); Chloride 103 mmol/L (98-107); Estimated GFR-MDRD 69; Glucose 143 mg/dL (70-105); Potassium 3.8 mmol/L (3.5-5.1); Sodium 133 mmol/L (136-145)
[2018-06-18] MEDS: Rifaximin 550 MG TAB PO SCH ×2 (08:51→21:46)
[2018-06-18] MEDS: Ferrous Sulfate 325 MG TAB PO SCH ×2 (08:51→17:23)
[2018-06-18] MEDS: Furosemide 20 MG TAB PO SCH (08:51)
[2018-06-18] MEDS: Spironolactone 25 MG TAB PO SCH ×2 (08:51→21:47)
[2018-06-18] MEDS: NPH, Human Insulin Isophane 300 UNIT/3 ML VIAL SC SCH ×2 (08:52→22:04)
[2018-06-18] MEDS: Artificial Tear Sol 15 ML BOT L EYE SCH ×3 (08:52→21:44)
[2018-06-18] MEDS: Propranolol HCl 20 MG TAB PO SCH ×2 (08:53→21:46)
--- NOTE | 2018-06-18 17:12 | PRG ---
DATE OF SERVICE: 06/18/2018 SUBJECTIVE: Mr. Gonzalez continues to improve steadily. Denies any headaches. No shortness of breath. No cough or sputum production. Able to swallow. No visual problems. OBJECTIVE: VITAL SIGNS: Vital signs are normal. HEENT: The herpes zoster lesions are drying up steadily. The palate lesions are resolving. LABORATORY DATA: White cell count is 7.2 and chemistry with normal creatinine. Miscellaneous test, herpes zoster PCR pending. ASSESSMENT AND DISCUSSION: Almost complete healing of the herpes zoster lesions. I believe tomorrow I can go back to discharge with oral valacyclovir to complete treatment course. The patient at risk for postherpetic neuralgia. Job ID: [id number]
[2018-06-18] MEDS ORDERED: Sodium Chloride 0.9% 10 ML ONE (20:18)
--- NOTE | 2018-06-18 22:52 | PDOC.PN ---
- Subjective Encounter Start Date: 06/18/18 Encounter Start Time: 12:00 Patient seen and examined for Herpes Zoster. No visual deficits/fever. No new complaints. No overnight events - Objective Resuscitation Status - Order Detail: 06/15/18 04:17 Resuscitation Status Routine Resuscitation Status: FULL: Full Resuscitation MAR Reviewed: Yes Vital Signs & Weight: Vital Signs (12 hours) Temp Pulse Resp BP BP Pulse Ox 06/18/18 16:00 98.1 F 66 17 118/75 96 06/18/18 11:23 97.7 F 65 20 96/62 95 Weight Admit Weight 200 lb 1.6 oz Weight 200 lb 1.6 oz I&O: 06/17/18 06/18/18 06/19/18 06:59 06:59 06:59 Intake Total 1400 1160 720 Balance 1400 1160 720 Result Diagrams: 06/19/18 05:36 06/19/18 05:36 Additional Labs: Accuchecks 06/18/18 06/18/18 06/18/18 20:01 16:47 11:21 POC Glucose 358 H 212 H 195 H 06/18/18 04:41 POC Glucose 159 H Phys Exam - Physical Examination Constitutional: NAD Respiratory: no wheezing, no rhonchi Cardiovascular: RRR, no rub Gastrointestinal: soft, non-tender, positive bowel sounds Musculoskeletal: no edema Neurological: moves all 4 limbs Dx/Plan - Plan DVT proph w/SCDs 1. 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 Cirrhosis 3. Obesity BMI 35 4. DM2 5. HTN 6. Hypothyroidism 7. Pancytopenia/Other issues per previous notes PLAN: Cont IV Acyclovir AM labs Cont current dose of NPH Cont current sliding scale Change Acyclovir to PO in AM per ID DC in 24-48 hr if stable Review of Systems - Review of Systems Respiratory: negative: Cough, Dry, Shortness of Breath, Hemoptysis, SOB with Excertion, Pleuritic Pain, Sputum, Wheezing Cardiovascular: negative: chest pain, palpitations, orthopnea, paroxysmal nocturnal dyspnea, edema, light headedness, other Gastrointestinal: negative: Nausea, Vomiting, Abdominal Pain, Diarrhea, Constipation, Melena, Hematochezia, Other - Medications/Allergies Allergies/Adverse Reactions: Allergies Allergy/AdvReac Type Severity Reaction Status Date / Time No Known Allergies Allergy Verified 08/27/16 10:10 Medications: Current Medications Acetaminophen (Tylenol) 325 mg PO Q6H PRN PRN Reason: Headache/Fever/MILDPain1-3 Artificial Tears (Tears Renewed 15ml Bottle) 0 drop L EYE TID [facility] Last Admin: 06/18/18 21:44 Dose: 1 drop Dextrose/Water (Dextrose 50%) 25 gm SLOW IVP PRN PRN PRN Reason: Hypoglycemia Ferrous Sulfate (Feosol) 325 mg PO BID-WM [facility] Last Admin: 06/18/18 17:23 Dose: 325 mg Furosemide (Lasix) 20 mg PO DAILY [facility] Last Admin: 06/18/18 08:51 Dose: 20 mg Glucagon (Glucagon) 1 mg IM PRN PRN PRN Reason: Hypoglycemia Hydralazine HCl (Apresoline) 10 mg SLOW IVP Q4H PRN PRN Reason: SBP > 180 and HR < 70 Dextrose/Water (D5w) 1,000 mls @ 0 mls/hr IV .Q0M PRN PRN Reason: Hypoglycemia Acyclovir Sodium 570 mg/ (Sodium Chloride) 111.4 mls @ 111.4 mls/hr IVPB Q8HR [facility] Last Admin: 06/18/18 21:48 Dose: 111.4 mls Insulin Human Lispro (Humalog) 0 units SC .BEDTIME SLIDING SC PRN PRN Reason: Bedtime Correctional Scale Last Admin: 06/18/18 22:05 Dose: 5 unit Insulin Human Lispro (Humalog) 0 units SC .AGGRESSIVE SLIDING PRN PRN Reason: Aggressive Correctional Scale Last Admin: 06/18/18 13:09 Dose: 3 unit Insulin Human NPH (Humulin N) 30 unit SC BID [facility] Last Admin: 06/18/18 22:04 Dose: 30 unit Lactulose (Lactulose) 10 gm PO TID [facility] Last Admin: 06/18/18 21:45 Dose: 10 gm Levothyroxine Sodium (Synthroid) 100 mcg PO 0600 [facility] Last Admin: 06/18/18 06:06 Dose: 100 mcg Mineral Oil/White Petrolatum (Eucerin Cream) 0 gm TOP BIDPRN PRN PRN Reason: Dry Skin Ondansetron HCl (Zofran Odt) 4 mg PO Q6H PRN PRN Reason: Nausea/Vomiting Ondansetron HCl (Zofran) 4 mg IVP Q6H PRN PRN Reason: Nausea/Vomiting Pantoprazole Sodium (Protonix) 40 mg PO DAILY [facility] Last Admin: 06/18/18 08:51 Dose: 40 mg Propranolol HCl (Inderal) 20 mg PO BID [facility] Last Admin: 06/18/18 21:46 Dose: 20 mg Rifaximin (Xifaxan) 550 mg PO BID [facility] Last Admin: 06/18/18 21:46 Dose: 550 mg Sodium Chloride (Flush - Normal Saline) 10 ml IVF Q12HR [facility] Last Admin: 06/18/18 21:48 Dose: 10 ml Sodium Chloride (Flush - Normal Saline) 10 ml IVF PRN PRN PRN Reason: Saline Flush Spironolactone (Aldactone) 25 mg PO BID [facility] Last Admin: 06/18/18 21:47 Dose: 25 mg Tramadol HCl (Ultram) 50 mg PO Q8H PRN PRN Reason: Moderate Pain (4-6)
[2018-06-19] MEDS: Levothyroxine Sodium 100 MCG TAB PO SCH (05:51)
[2018-06-19] MEDS: Acyclovir Sodium 570 MG in Sodium Chloride 0.9% 100 ML IVPB SCH ×2 (05:51→14:52)
[2018-06-19 06:56] LABS: Anion Gap 9 mmol/L (10-20); BUN (Urea Nitrogen) 15 mg/dL (8.4-25.7); Calc. Creatinine Clearance 100 mL/min (70-130); Calcium 8.4 mg/dL (7.8-10.44); Carbon Dioxide 26 mmol/L (22-29); Chloride 106 mmol/L (98-107); Estimated GFR-MDRD 75; Glucose 83 mg/dL (70-105); Potassium 3.9 mmol/L (3.5-5.1); Sodium 137 mmol/L (136-145)
[2018-06-19 06:57] LABS: #Eosinphils 0.3 thou/uL (0.0-0.7); #Lymphocytes 1.9 thou/uL (1.20-3.40); #Monocytes 0.5 thou/uL (0.11-0.59); #Neutrophils 3.3 thou/uL (1.40-6.50); %Basophils 0.4 % (0.0-1.0); %Eosinophils 4.2 % (0.0-10.0); %Lymphocytes 32.1 % (21.0-51.0); %Neutrophils 55.2 % (42.0-75.0); Hemoglobin 11.7 g/dL (14.0-18.0); Mean Corpuscular HGB CONC 34.6 g/dL (32.0-36.0); Mean Corpuscular Hemoglobin 33.8 pg (27.0-31.0); Mean Corpuscular Volume 97.6 fL (78.0-98.0); Mean Platelet Volume 7.3 fL (7.4-10.4); Platelet Count 76 thou/uL (130-400); Red Blood Cell (RBC) Count 3.48 mill/uL (4.70-6.10)
[2018-06-19] MEDS ORDERED: NPH, Human Insulin Isophane 300 UNIT/3 ML VIAL SC SCH ×2 (09:00→21:00)
[2018-06-19] MEDS: Spironolactone 25 MG TAB PO SCH (09:26)
[2018-06-19] MEDS: Furosemide 20 MG TAB PO SCH (09:26)
[2018-06-19] MEDS: Propranolol HCl 20 MG TAB PO SCH (09:26)
[2018-06-19] MEDS: Rifaximin 550 MG TAB PO SCH (09:26)
[2018-06-19] MEDS: Ferrous Sulfate 325 MG TAB PO SCH ×2 (09:26→16:19)
[2018-06-19] MEDS: Artificial Tear Sol 15 ML BOT L EYE SCH ×2 (09:27→14:52)
[2018-06-19] MEDS: HumaLOG 300 UNITS/3 ML VIAL SC PRN (11:52)
[2018-06-19 16:19] VITALS: BP 132/88; TEMP 98.4
--- NOTE | 2018-06-19 21:50 | DIS ---
DATE OF ADMISSION: 06/15/2018 DATE OF DISCHARGE: 06/19/2018 DISCHARGE DISPOSITION: Patient is an inmate. ALLERGIES: NO KNOWN DRUG ALLERGIES. PATIENT WAS SEEN AND EXAMINED ON THE DAY OF DISCHARGE. DENIES ANY NEW COMPLAINTS. DISCHARGE MEDICATION: 1. Valtrex 1 g 3 times daily for next 4 days. 2. All other home medications were left unchanged. BRIEF HOSPITAL COURSE: The patient is a 62-year-old male with cirrhosis, presented to the hospital with left facial swelling on 15 June 2018. Please refer to the history and physical for further details. The patient was admitted to the hospital with a diagnosis of left facial cellulitis/suspected herpes zoster. He was started on empiric antibiotics initially. After Infectious Disease consultation, antibiotics were discontinued. He was started on intravenous acyclovir. His symptoms gradually improved. The skin lesion is gradually improving. Per Infectious Disease recommendation, patient will be discharged on valacyclovir. He appears stable for discharge and has been cleared by Infectious Disease. FINAL DIAGNOSES: 1. Left facial inflammatory changes secondary to herpes zoster. 2. Cirrhosis. 3. Obesity with a body mass index of 35.4. 4. Hypertension. 5. Diabetes mellitus type 2. 6. Hypothyroidism. 7. Pancytopenia. 8. Chronic kidney disease, stage 2. 9. Hyponatremia. 10. Abnormal liver function tests secondary to cirrhosis. INPATIENT CONSULTANTS: 1. Infectious Disease, Dr. Sloan. 2. Ophthalmology, Dr. Ontiveros. TIME SPENT: Total time coordinating the discharge of this patient was 33 minutes. Job ID: [id number]
== END 2018-06-19 17:03 | DRG 74 ==
LOC: EEVIPCON 21:55 → ERS 21:55 → T4-A 06-15 02:52
PROVIDERS: ADMIT Internal Medicine; ATTEND Internal Medicine
DX: B02.22 Postherpetic trigeminal neuralgia (principal); L03.211 Cellulitis of face; D61.818 Other pancytopenia; E87.1 Hypo-osmolality and hyponatremia; K74.60 Unspecified cirrhosis of liver; K21.9 Gastro-esophageal reflux disease without esophagitis; E03.9 Hypothyroidism, unspecified; E66.9 Obesity, unspecified; Z68.35 Body mass index [BMI] 35.0-35.9, adult; N18.2 Chronic kidney disease, stage 2 (mild); E11.22 Type 2 diabetes mellitus with diabetic chronic kidney disease; I12.9 Hypertensive chronic kidney disease with stage 1 through stage 4 chronic kidney disease, or unspecified chronic kidney disease
CPT/HCPCS: 36415; 36416; 80048; 80053; 83735; 85025; 85610; 99284; J0133; J0696; J1815; J3370; J3490; J7050